=== PATIENT | female | born 1935 | race Caucasian/White ===

== ENCOUNTER 2018-06-09 23:53 | Emergency (ER) | payer OTHER ==
[~2018-06-09] VITALS: Ht 162.6 cm; Wt 64.4 kg
[~2018-06-09 23:53] MED LIST: ACID REDUCER200 MG PO; ALENDRONATE SOD70 MG PO; BIOTIN1 MG PO; CALCIUM 600 +1 EAC2 PO; CICLODAN 8% K34.6 ML TOP; CICLOPIROX 8%34.6 ML TOP; FISH OIL OMEGA1 EACH PO; GABAPENTIN400 MG PO; GABAPENTIN800 MG PO; HYDROCODON-ACE1 EA11 PO; LEVAQUIN500 MG PO; MULTI-VITAMIN1 EACH PO; MULTIVITAMINS1 EAC8 PO; MUPIROCIN22 GM TOP; NORCO 5-325 TA1 EACH PO; OMEPRAZOLE40 MG PO; OXYBUTYNIN CHLOR5 MG PO; PROMETHAZINE V240 ML PO; PROMETHAZINE-D118 ML PO; SIMVASTATIN40 MG PO; ULTRAM50 MG PO; VITAMIN B12-FO1 EACH PO; VITAMIN D3400 UNIT PO; [UNRECOGNIZED DRUG - REMARK] TOP
--- NOTE | 2018-06-10 00:54 | Diagnostic Imaging Report ---
EXAMINATION: Head CT without contrast. HISTORY:Status post fall. COMPARISON:None. TECHNIQUE: Multidetector axial images were obtained from the foramen magnum to the vertex without contrast. The images were reconstructed using brain and bone algorithms. Thin section brain images were reformatted into coronal and sagittal planes. Dose modulation, iterative reconstruction, and/or weight based adjustment of the mA/kV was utilized to reduce the radiation dose to as low as reasonably achievable. Intravenous contrast: None IMAGE QUALITY: Acceptable. FINDINGS: Skull/scalp: Minimal right parietal scalp soft tissue edema. No acute depressed or displaced calvarial fracture. Parenchyma: Nonspecific few, scattered supratentorial white matter hypodensity are likely related to small vessel ischemic changes. 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 No acute hemorrhage, mass or acute major vascular territorial infarct. Arteries: No density suggestive of thrombosis. Dural sinuses: No abnormal density suggestive of thrombosis. Ventricles: Moderate ventriculomegaly (lateral and third ventricle) slightly disproportionate to the amount of cerebral volume loss Extra-axial spaces: 3 x 2.5 cm right parietal extra-axial cystic lesion with regional mass effect possibly represents an arachnoid cyst. Brain volume: Mild generalized volume loss. Craniocervical junction: No mass, Chiari malformation, or basilar invagination. Sella: No mass. Paranasal/mastoid sinuses: Imaged portions unremarkable. IMPRESSION: 1. Minimal right parietal scalp soft tissue edema. No acute fracture. 2. No acute posttraumatic intracranial abnormality. 3. Mild supratentorial white matter microvascular ischemic changes and old lacunar infarct in left putamen. 4. Moderate ventriculomegaly disproportionate to the amount of cerebral volume loss, may represent normal pressure hydrocephalus are compensated communicating type hydrocephalus in appropriate clinical setting. 5. Mild generalized cerebral volume loss. Signed by: Dr. Diandra Peck M.D. on 06/10/2018 12:51 AM
--- NOTE | 2018-06-10 00:57 | Diagnostic Imaging Report ---
SHOULDER RIGHT COMPLETE Comparison: None Clinical history: Fall Findings: No fracture or dislocation. Impression: No acute bony abnormality Signed by: Dr Serena Prajapati MD on 06/10/2018 12:54 AM
--- NOTE | 2018-06-10 01:01 | Diagnostic Imaging Report ---
History: Status post fall. Comparison studies: CT cervical spine from 08/22/2015. Technique: Axial images were obtained through the cervical region.. Coronal and sagittal images reconstructed from the axial data. Dose modulation, iterative reconstruction, and/or weight based adjustment of the mA/kV was utilized to reduce the radiation dose to as low as reasonably achievable. Intravenous contrast: None Findings: Fractures: None. Soft tissue injuries: None. Atlantoaxial articulation: Intact. Alignment: Normal lordosis. No scoliosis. 2 mm grade 1 anterolisthesis at level C4-C5 and C6-C7, likely degenerative. Cervicomedullary junction: No abnormalities. The foramen magnum is patent. Soft tissues: No abnormalities. Vertebrae: No fractures, infection or neoplasm. Degenerative changes: C2-C3: Bilateral facet arthrosis without significant foraminal stenosis. C3-C4: Status post or disc osteophyte complex without canal stenosis. Moderate left foraminal stenosis due to facet and uncovertebral arthrosis. C4-C5: Moderate right foraminal stenosis due to facet and uncovertebral arthrosis. C5-C6: Mild bilateral foraminal stenosis due to facet and uncovertebral arthrosis. IMPRESSION: 1. No acute cervical spine fracture. 2. Ligament, spinal cord and or vascular abnormalities cannot be excluded on the basis of this examination. 3. Cervical spondylosis as detailed above. Signed by: Dr. Diandra Peck M.D. on 06/10/2018 12:58 AM
== END 2018-06-10 01:36 | disposition home or self-care (01) ==
LOC: ER 23:53
DX: S00.03XA Contusion of scalp, initial encounter (principal); S40.011A Contusion of right shoulder, initial encounter; W01.0XXA Fall on same level from slipping, tripping and stumbling without subsequent striking against object, initial encounter; Y93.01 Activity, walking, marching and hiking; Y92.008 Other place in unspecified non-institutional (private) residence as the place of occurrence of the external cause; K21.9 Gastro-esophageal reflux disease without esophagitis; E78.00 Pure hypercholesterolemia, unspecified; Z96.642 Presence of left artificial hip joint
CPT/HCPCS: 70450; 72125; 99284